=== PATIENT | male | born 1990 | race Caucasian/White ===

== ENCOUNTER 2021-09-06 08:34 | Observation (INO) | payer BC ==
[~2021-09-06] VITALS: Ht 177.8 cm; Wt 88.6 kg
[2021-09-06] VITALS (8 sets, daily range): BP systolic 110–128; BP diastolic 64–84; PULSE 54–68
[~2021-09-06 08:34] MED LIST: NO HOME MEDICATIONS; NORCO 325 MG-51 TAB PO; NORCO 325 MG-7.1 TAB PO; ROCEPHIN 2GM VIAL2 G IJ
[2021-09-06 10:25] LABS: BASO % 0.2 % (0.0-2.0); EOS # 0.2 K/mm3 (0.0-0.7); EOS % 1.4 % (0-4.0); GRAN # 14.3 K/mm3 (1.4-6.5); GRAN % 89.1 % (42.2-75.2); HEMATOCRIT 48.6 % (42.0-52.0); HEMOGLOBIN 17.2 g/dl (13.5-18.0); LYMPH % 6.4 % (20.0-51.0); MEAN CELL VOLUME 90 fl (80.0-100.0); MEAN CORPUSCULAR HEMOGLOBIN 32 pg (27.0-31.0); MEAN CORPUSCULAR HGB CONC 35 g/dl (33.0-37.0); MEAN PLATELET VOLUME 10.2 fl (7.4-10.4); MONO # 0.4 K/mm3 (0.1-0.6); MONO % 2.5 % (1.7-9.3); PLATELET COUNT 188 K/mm3 (130-400); RED BLOOD COUNT 5.43 M/mm3 (4.20-5.60); REDCELL DISTRIBUTION WIDTH-CV 11.9 % (11.5-14.5)
[2021-09-06 10:49] LABS: ALBUMIN 4.8 gm/dL (3.5-5.0); BILIRUBIN,TOTAL 1.2 mg/dL (0.2-1.2); C-REACTIVE PROTEIN 1.41 mg/dL (0.00-0.50); CALCIUM 9.6 mg/dL (8.4-10.2); CREATININE, serum 0.81 mg/dL (0.72-1.25); POTASSIUM 3.8 mmol/L (3.5-4.5); TOTAL PROTEIN 7.7 gm/dL (6.2-8.1)
[2021-09-06 11:09] LABS: COLLECTION METHOD CLEAN CATCH
[2021-09-06 11:19] LABS: MUCOUS Present (NOT PRESENT); PH 8 (5-8); SQUAMOUS EPITHELIAL None Seen /hpf (0-10); URINE APPEARANCE Hazy (CLEAR/HAZY); URINE BACTERIA None Seen (NONE SEEN); URINE BILIRUBIN Negative (NEGATIVE); URINE BLOOD Negative (NEGATIVE); URINE COLOR Yellow (YELLOW); URINE GLUCOSE Negative (NEGATIVE); URINE KETONE Trace (NEGATIVE); URINE LEUKOCYTE ESTERASE Negative (NEGATIVE); URINE NITRATE Negative (NEGATIVE); URINE PROTEIN(semi-quant) Negative (NEGATIVE); URINE UROBILINOGEN >=4.0 mg/dL (NEGATIVE)
--- NOTE | 2021-09-06 18:08 | NUR ---
Patient recieved post op. Report from Desi Lord. Patient awake & alert. dinner ordered, denies nausea. Vss on room. Lap site x3, edges well approximated. Will monitor.
--- NOTE | 2021-09-06 18:34 | NUR ---
Patient resting in bed. continues to do well post op. Will report off to nightnurse
--- NOTE | 2021-09-06 22:46 | NUR ---
ALERT AND OX4. DENIES SOA, CHEST PAIN OR DIZZY. NO PAIN. UP TO AMBULATE. VOIDING AND MILD NAUSEA W SOME FOOD INTAKE. NO PM MEDS, PRN DISCUSSED. WILL DC IN AM. CALL LIGHT WI REACH. NEEDS MET.
[2021-09-07 00:19] VITALS: BP 114/57; PULSE 67; TEMP 98.2
[2021-09-07 04:16] VITALS: BP 106/60; PULSE 66; TEMP 98
[2021-09-07 07:08] VITALS: BP 98/46; PULSE 66; TEMP 98
[2021-09-07] MEDS ORDERED: NORCO 325 MG-51 TAB PO (07:36)
--- NOTE | 2021-09-07 08:06 | NUR ---
rounded. Plan of care reviewed. Patient ready for discharge home. Breakfast ordered. he denies nausea. Lap site x3, edges well approximated. Abdomen rounded. Int Dc. All dischargew paperwork reviewed. Including script for norco that was sent to pharmacy. Incisions cares, diet and activity discussed. Patient denies questions or concerns.
--- NOTE | 2021-09-07 09:44 | NUR ---
Patient ready for discharge. Denies questions or concerns. His significant other taking him home, he ambulated out with all belogings
== END 2021-09-07 09:45 | disposition home or self-care (01) ==
LOC: COL.ER 08:34 → SURG 13:03
PROVIDERS: Nurse Practitioner Primary Care; ADMIT Surgery
DX: K35.80 Unspecified acute appendicitis (principal); F17.210 Nicotine dependence, cigarettes, uncomplicated
CPT/HCPCS: G0378; J0330; J0690; J0696; J1100; J1885; J2250; J2270; J2405; J2704; J3010; J7030; Q9967